=== PATIENT | male | born 1990 | race Caucasian/White ===

== ENCOUNTER 2020-06-16 22:02 | Emergency (ER) | payer OTHER ==
[~2020-06-16] VITALS: Ht 167.6 cm; Wt 72.6 kg
[~2020-06-16 22:02] MED LIST: IBUPROFEN 800800 MG PO; NEURONTIN 300300 M1 PO; OXYCODONE HCL 55 MG PO; TRAZODONE HCL50 MG PO; VICOPROFEN 2001 EAC1 PO; XANAX1 MG PO
[2020-06-16] MEDS ORDERED: ATIVAN1 M1 PO (22:16)
[2020-06-16] MEDS ORDERED: XANAX XR3 MG PO (22:16)
[2020-06-16] MEDS ORDERED: BACTRIM DS TAB1 EACH PO (22:56)
[2020-06-16 23:23] VITALS: BP 138/75
== END 2020-06-16 23:24 | disposition home or self-care (01) ==
LOC: ER 22:02
DX: L03.114 Cellulitis of left upper limb (principal); R50.9 Fever, unspecified; L40.9 Psoriasis, unspecified; F17.210 Nicotine dependence, cigarettes, uncomplicated; Z98.890 Other specified postprocedural states; Z79.899 Other long term (current) drug therapy; Z88.6 Allergy status to analgesic agent